=== PATIENT | female | born 1960 | race Caucasian/White ===

== ENCOUNTER → 2023-05-29 09:13 | Outpatient (CLI) | payer MEDICARE, SELFPAY ==
--- NOTE | 2023-05-29 | DI.MRI.S_ITS ---
PROCEDURE: MR ANKLE LT WO CON INDICATIONS: Pain in LEFT ankle and joints of LEFT foot TECHNIQUE: Noncontrast sagittal T1 spin echo and T2 fast spin echo with fat saturation, axial proton density fast spin echo and T2 fast spin echo with fat saturation, coronal T1 spin echo and T2 fast spin echo with fat saturation through the ankle/hindfoot. COMPARISON: None. FINDINGS: Image quality: Excellent. 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 No marrow edema. No fracture or dislocation. No hindfoot coalitions. No osteochondral injuries of the talar dome. Well-defined plantar and dorsal calcaneal enthesophytes are seen. Small tibiotalar and subtalar joint effusion is noted, no gross loose bodies. Medial structures: The posterior tibialis tendon is thickened at the level of distal talus and talonavicular joint. The flexor digitorum longus, and flexor hallucis longus tendons are intact. The posterior tibial neurovascular bundle appears normal within the tarsal tunnel, without extrinsic mass effect. The deep fibers of deltoid ligament is thickened. The spring ligament complex is intact. Lateral structures: The anterior talofibular, calcaneofibular, and posterior talofibular ligaments appear thickened with subtle intrasubstance T2 hyperintense signal. More superiorly, the anterior and posterior tibiofibular ligaments appear intact, as is the intermalleolar ligament. The tibiofibular syndesmosis is normal in width at 2 mm or less. The peroneus longus and brevis tendons demonstrate normal location and morphology. Adjacent bony peroneal tubercle and retrotrochlear prominence are normal in size. The sinus tarsi demonstrates normal fatty signal, without edema, fibrosis, or cyst formation. Visualized sinus tarsi components (cervical ligament, interosseous talocalcaneal ligament, roots of the inferior extensor retinaculum) appear normal. The calcaneonavicular and calcaneocuboid components of the bifurcate ligament appear intact. The dorsal calcaneocuboid ligament appears intact. Anterior structures: The tibialis anterior tendon is markedly thickened at along anterior aspect of distal tibia and tibiotalar joint. The extensor hallucis longus, and extensor digitorum longus tendons appear intact. The dorsal talonavicular ligament appears intact. Posterior and plantar structures: Mildly thickened distal Achilles tendon extending to its posterior calcaneal insertion is seen. Thickened medial band of plantar fascia at its plantar calcaneal insertion is noted with surrounding soft tissue edema. No abductor digiti quinti muscle atrophy to suggest Stevenson neuropathy. IMPRESSION: 1. 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 No acute fracture or dislocation. No gross osteochondral injuries of talar dome. Well-defined plantar and dorsal calcaneal enthesophytes. Small joint effusion, no gross loose bodies. 2. Distal posterior tibialis tendinosis at the level of distal talus and talonavicular joint. 3. Moderate grade tendinosis involving tibialis anterior tendon at the level of distal tibia and tibiotalar joint. 4. Low-grade sprain involving deep fibers of deltoid ligament. Low-grade sprain/intrasubstance partial-thickness tear involving anterior and posterior talofibular ligaments and calcaneofibular ligament. No full-thickness ankle tendon rupture. 5. Mild distal Achilles tendinosis. No Achilles tendon rupture. 6. [id number] plantar fasciitis with thickened medial band of plantar fascia. Dictated by: Nino Baker M.D. on 05/30/2023 at 10:22 Approved by: Nino Baker M.D. on 05/30/2023 at 10:44
== END ==
LOC: MRI 09:16
PROVIDERS: PCP Family Medicine; Referring Provider Orthopaedic Surgery Foot and Ankle Surgery; Visit Provider Orthopaedic Surgery Foot and Ankle Surgery
DX: S93.422A Sprain of deltoid ligament of left ankle, initial encounter (principal); S93.492A Sprain of other ligament of left ankle, initial encounter; S93.412A Sprain of calcaneofibular ligament of left ankle, initial encounter; M19.072 Primary osteoarthritis, left ankle and foot; M72.2 Plantar fascial fibromatosis; M77.32 Calcaneal spur, left foot; M25.475 Effusion, left foot; M25.572 Pain in left ankle and joints of left foot
CPT/HCPCS: 73721